=== PATIENT | male | born 1995 | race Caucasian/White ===

== ENCOUNTER 2017-01-04 12:00 | Outpatient (CLI) | payer BC | END 2017-01-04 12:01 | disposition home or self-care (01) | LOC: LABBT 12:00 | PROVIDERS: ATTEND Dentist Oral and Maxillofacial Surgery | DX: Z01.818 Encounter for other preprocedural examination (principal) ==

== ENCOUNTER 2017-01-09 07:54 | Day surgery (SDC) | payer BC ==
[2017-01-04 12:31] VITALS: BMI 38.0
[2017-01-09] MEDS ORDERED: Clindamycin/D5W 900 mg/50 ml Premix Bag ONE (08:20)
[2017-01-09] MEDS ORDERED: Dexamethasone 4 mg/ml Vial ONE (08:20)
[2017-01-09] MEDS ORDERED: Fentanyl 100 MCG/2 ML VIAL ONE (09:11)
[2017-01-09] MEDS ORDERED: Midazolam HCl 2 mg/2 ml Vial ONE ×2 (09:11→09:19)
[2017-01-09] MEDS ORDERED: Lidocaine 1% w/Epinephrine 1:200K 30 ML VIAL ONE (09:26)
[2017-01-09] MEDS ORDERED: Chlorhexidine Gluconate 15 ML UDCUP SSP ONE (09:26)
[2017-01-09] MEDS ORDERED: Hydrocortisone 1% Cream 30 GM TUBE ONE (09:26)
[2017-01-09] MEDS ORDERED: Dexamethasone 20 MG/5 ML VIAL ONE (09:46)
[2017-01-09] MEDS ORDERED: Propofol 200 MG/20 ML VIAL ONE (09:46)
[2017-01-09] MEDS ORDERED: Succinylcholine Chloride 20 MG/ML 10 ml SYRINGE FS ONE (09:46)
[2017-01-09] MEDS ORDERED: Glycopyrrolate 0.2 MG/ML 5 ML SYRINGE ONE (09:46)
[2017-01-09] MEDS ORDERED: Lidocaine 1% PF 5 ML VIAL ONE (09:46)
[2017-01-09] MEDS ORDERED: Ondansetron HCl/PF 4 MG/2 ML Vial ONE (09:46)
[2017-01-09] MEDS ORDERED: Ketorolac Tromethamine 30 MG/ML VIAL ONE (11:47)
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
== END 2017-01-09 12:40 | disposition home or self-care (01) ==
LOC: SDC 07:54
PROVIDERS: ATTEND Dentist Oral and Maxillofacial Surgery
PROC: 0JP Subcutaneous Tissue and Fascia, Removal (ICD-10-PCS; principal; 2017-01-09)
DX: T85.9XXA Unspecified complication of internal prosthetic device, implant and graft, initial encounter (principal); F17.200 Nicotine dependence, unspecified, uncomplicated; Z98.890 Other specified postprocedural states
CPT/HCPCS: J1100; J1885; J2001; J2250; J2405; J2704; J3010; J3490

== ENCOUNTER 2017-01-10 04:39 | Inpatient (IN) | payer BC ==
[2017-01-10] MEDS ORDERED: Piperacillin/Tazobactam 3.375 GM in Sodium Chloride 0.9% 100 ML IVPB SCH (05:15)
[2017-01-10] MEDS ORDERED: Benzocaine 20% Spray 60 ML CAN ONE (05:19)
[2017-01-10 05:54] LABS: Lactic Acid - Sepsis 2.4 mmol/L (0.5-2.2)
[2017-01-10] MEDS ORDERED: Dextrose 50% Abboject 50 ML SYRINGE SLOW IVP PRN (07:14)
[2017-01-10] MEDS ORDERED: Ondansetron HCl/PF 4 MG/2 ML Vial IVP PRN (07:14)
[2017-01-10] MEDS ORDERED: Dextrose 5% in Water 1,000 ML IV PRN (07:14)
[2017-01-10] MEDS ORDERED: hydrALAZINE 20 MG/ML VIAL SLOW IVP PRN (07:14)
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
[2017-01-10] MEDS: D5 1/2 NS w/20 mEq KCL 1,000 ML IV SCH ×3 (08:20→23:58)
[2017-01-10] MEDS ORDERED: Morphine PF 1 MG/ML SYR IVP PRN (08:23)
[2017-01-10] MEDS ORDERED: MORPHINE 10 MG/ML SYRINGE IV PRN (08:30)
[2017-01-10] MEDS: Famotidine/PF 20 mg/2ml Vial SLOW IVP SCH ×2 (08:38→20:28)
--- NOTE | 2017-01-10 10:22 | RAD ---
KUB: Date: 01-10-17 History: Nasogastric tube placement. FINDINGS: There is a paucity of bowel gas seen distally. There is dilated gas filled small bowel in the mid lef t abdomen measuring up to 4.3 cm. The urinary bladder is distended and contains contrast media. Nasog astric tube extends into the left upper quadrant, likely within the gastric body. IMPRESSION: Dilated small bowel and mid left abdomen suggests small bowel obstruction. Nasogastric tube in place. Round radiodense partially imaged structure in the pelvis suggests a distended contrast containing u rinary bladder. POS: [facility]
[2017-01-10] MEDS: Acetaminophen 1,000 MG in Premix Bag 1 BAG IVPB SCH ×3 (12:15→23:57)
[2017-01-10] MEDS: Piperacillin/Tazobactam 3.375 GM in Sodium Chloride 0.9% 100 ML IVPB SCH ×3 (12:50→23:59)
[2017-01-10] MEDS: Ketorolac Tromethamine 30 MG/ML VIAL IVP SCH ×3 (15:17→23:59)
[2017-01-10 15:58] VITALS: BMI 41.5
[2017-01-10] MEDS ORDERED: Enoxaparin Sodium 40 MG/0.4 ML SYRINGE SC SCH (21:00)
[2017-01-11 05:20] LABS: #Basophils 0.1 thou/uL (0.0-0.2); #Eosinphils 0.1 thou/uL (0.0-0.7); #Lymphocytes 3.2 thou/uL (1.20-3.40); #Monocytes 0.6 thou/uL (0.11-0.59); #Neutrophils 5.8 thou/uL (1.40-6.50); %Basophils 0.7 % (0.0-1.0); %Lymphocytes 32.8 % (28.0-48.0); %Monocytes 6.4 % (0.0-4.0); Hematocrit 44.5 % (42.0-52.0); Mean Platelet Volume 7.2 fL (7.4-10.4); Red Blood Cell (RBC) Count 5.01 mill/uL (4.00-5.20); White Blood Cell (WBC) Count 9.8 thou/uL (4.8-10.8)
[2017-01-11 05:24] LABS: Anion Gap 9 mmol/L (10-20); BUN (Urea Nitrogen) 10 mg/dL (8.9-20.6); Calc. Creatinine Clearance 258 mL/min (70-130); Calcium 8.6 mg/dL (7.8-10.44); Carbon Dioxide 27 mmol/L (22-29); Chloride 107 mmol/L (98-107); Estimated GFR-MDRD Greater than 90
[2017-01-11] MEDS: Acetaminophen 1,000 MG in Premix Bag 1 BAG IVPB SCH ×2 (05:25→12:27)
[2017-01-11] MEDS: Piperacillin/Tazobactam 3.375 GM in Sodium Chloride 0.9% 100 ML IVPB SCH ×2 (05:26→12:28)
[2017-01-11] MEDS: Ketorolac Tromethamine 30 MG/ML VIAL IVP SCH ×2 (05:26→12:27)
[2017-01-11] MEDS: D5 1/2 NS w/20 mEq KCL 1,000 ML IV SCH (08:47)
[2017-01-11] MEDS: Famotidine/PF 20 mg/2ml Vial SLOW IVP SCH (10:05)
--- NOTE | 2017-01-11 10:08 | RAD ---
ACUTE ABDOMINAL SERIES FRONTAL RADIOGRAPH CHEST AND TWO VIEWS ABDOMEN: Date: 01-11-17 Comparison: None. History: Bowel obstruction noted on prior CT exam. FINDINGS: There is a nasogastric tube in place, distal tip extending into the region of the gastric body. There is no pneumothorax, pleural fluid, focal consolidation or alveolar edema. Upright imaging demonstrates no free intraperitoneal air. No dilated gas filled loops of small bowel are seen. Fluid filled dilated small bowel cannot be excluded. IMPRESSION: No free intraperitoneal air. Nasogastric tube in place. POS: [facility]
--- NOTE | 2017-01-11 11:00 | RAD ---
SMALL BOWEL FOLLOW THROUGH: Date: 01-11-17 Comparison: None. History: Small bowel obstruction seen on recent CT exam. FINDINGS: [employer] imaging demonstrates a nasogastric tube within the stomach. The patient was administered Gastrografin through the nasogastric tube and the contrast media was fol lowed from the stomach through the small bowel into the colon. Immediate post injection imaging demonstrates contrast media within the stomach and multiple dilated loops of small bowel within the left abdomen. At 15 minutes, contrast media is seen throughout celia us nondilated loops of small bowel including jejunum and ileum. By 30 minutes the contrast media has entered the colon and extends to the level of the mid transverse colon. IMPRESSION: Rapid transit of the contrast media from stomach to colon. No evidence for small bowel obstruction. POS: [facility]
[2017-01-11 11:39] VITALS: BP 114/81; TEMP 98.5
--- NOTE | 2017-01-11 14:45 | PRG ---
DATE OF SERVICE: 01/11/2017 SUBJECTIVE: Mr. Colin is doing well today. NG tube output has been 1375 in the last 24 hours. He has passed gas. He feels better. He is not having any abdominal pain. LABORATORY DATA: White count is 9.8, hemoglobin 15. Basic metabolic profile was normal. Small bambi l follow-through was normal, rapid transit into the colon. No evidence of obstruction. OBJECTIVE: LUNGS: Clear to auscultation. CARDIAC: Regular rate and rhythm without murmur or gallop. ABDOMEN: Soft, obese, nontender, nondistended. ASSESSMENT AND PLAN: Resolved ileus. PLAN: Diet as tolerated. Discharged home today, as NG tube was removed earlier today and he is tole rating his diet. He has had multiple bowel movements.
[2017-01-11] MEDS ORDERED: MD-Gastroview 120 ML BOT ONE (15:32)
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
== END 2017-01-11 16:43 | disposition home or self-care (01) | DRG 390 ==
LOC: ERS 04:39 → SURG A 06:12
PROVIDERS: ADMIT Specialist; ATTEND Specialist
DX: K56.7 Ileus, unspecified (principal); F17.210 Nicotine dependence, cigarettes, uncomplicated; K91.30 Postprocedural intestinal obstruction, unspecified as to partial versus complete; Z98.818 Other dental procedure status
CPT/HCPCS: 36415; 74000; 74022; 74250; 80048; 83605; 85025; 87040; 96361; 96365; 96375; J0131; J1170; J1650; J1885; J2543; J7050; S0028